=== PATIENT | female | born 1980 | race Caucasian/White ===

== ENCOUNTER 2016-07-03 21:28 | Emergency (ER) | payer MEDICAID ==
[~2016-07-03] VITALS: Ht 170.2 cm; Wt 82.6 kg
[~2016-07-03 21:28] MED LIST: MOTRIN600 MG PO
[2016-07-03 21:35] VITALS: BP 112/71
--- NOTE | 2016-07-03 22:15 | NUR ---
TO ER BED 6
--- NOTE | 2016-07-03 22:22 | NUR ---
CALLED X-RAY FOR ETA TIME.
[2016-07-03] MEDS ORDERED: KETOROLAC 60 MG/2 ML VIAL IM ONE (23:30)
[2016-07-04 00:04] VITALS: BP 108/65
== END 2016-07-04 00:01 | disposition home or self-care (01) ==
LOC: MED 21:28
DX: S61.212A Laceration without foreign body of right middle finger without damage to nail, initial encounter (principal); S60.414A Abrasion of right ring finger, initial encounter; S60.416A Abrasion of right little finger, initial encounter; W18.00XA Striking against unspecified object with subsequent fall, initial encounter; Y93.89 Activity, other specified; Y92.89 Other specified places as the place of occurrence of the external cause; Y99.8 Other external cause status
CPT/HCPCS: 12001; 73130; 96372; 99284; J1885; Q0092

== ENCOUNTER 2017-04-09 13:08 | Emergency (ER) | payer OTHER, MEDICAID ==
[~2017-04-09] VITALS: Ht 170.2 cm; Wt 92.5 kg
[~2017-04-09 13:08] MED LIST changes: +IBUP-2213 PO; -MOTRIN600 MG PO
[2017-04-09 13:12] VITALS: BP 122/41
--- NOTE | 2017-04-09 13:13 | NUR ---
PT TAKEN TO BED 11.
--- NOTE | 2017-04-09 13:15 | NUR ---
36/F presents to ED with complaints of right knee pain s/p fall off a chair while changing a basketball hoop net last night. Pt states "I was standing on a chair and fell off." Denies LOC. Swelling noted to right knee, pt observed ambulating with steady but uneven gait. AOX4, clear speech. at bedside. VSS.
--- NOTE | 2017-04-09 13:45 | NUR ---
xray by bedside
[2017-04-09] MEDS ORDERED: KETOROLAC 60 MG/2 ML VIAL IM ONE (14:50)
--- NOTE | 2017-04-09 14:56 | NUR ---
jennifer bandage applied to right knee. cms intact to right lower extremities. educated patient on use of jennifer bandage. Patient verbazlied understanding.
[2017-04-09 15:11] VITALS: BP 117/61
--- NOTE | 2017-04-09 15:11 | NUR ---
Patient discharged with v/s stable. Written and verbal after care instructions given and explained. Patient alert, oriented and verbalized understanding of instructions. Ambulatory with steady gait. All questions addressed prior to discharge. ID band removed. Patient advised to follow up with PMD. Rx of Motrin and [place] #5 given. Patient educated on indication of medication including possible reaction and side effects. Opportunity to ask questions provided and answered.
== END 2017-04-09 15:11 | disposition home or self-care (01) ==
LOC: MED 13:08
DX: S80.01XA Contusion of right knee, initial encounter (principal); Z79.899 Other long term (current) drug therapy; W07.XXXA Fall from chair, initial encounter; Y93.89 Activity, other specified; Y92.89 Other specified places as the place of occurrence of the external cause; Y99.8 Other external cause status
CPT/HCPCS: 73562; 96372; 99284; J1885; Q0092